=== PATIENT | female | born 1955 | race African-American/Black ===

== ENCOUNTER 2017-01-19 13:07 | Emergency (ER) | payer MEDICAID ==
[~2017-01-19] VITALS: Ht 162.6 cm; Wt 65.0 kg
[~2017-01-19 13:07] MED LIST: METHADONE PO
[2017-01-19] MEDS ORDERED: KETOROLAC 30MG/ML VIAL IM ONE (14:30)
[2017-01-19] MEDS ORDERED: ETOMIDATE 2MG/ML 10ML VIAL IV ONE (16:15)
[2017-01-19] MEDS ORDERED: MORPHINE SULFATE 4 MG/ML CPJ (NOT FOR IM USE) IV ONE (16:15)
[2017-01-19] MEDS ORDERED: ONDANSETRON HCL 4MG/2ML VIAL IV ONE (16:15)
[2017-01-19 17:30] VITALS: BP 176/83
== END 2017-01-19 19:15 | disposition home or self-care (01) ==
LOC: ER 15:02
DX: S52.531A Colles' fracture of right radius, initial encounter for closed fracture (principal); Z87.01 Personal history of pneumonia (recurrent); Y08.89XA Assault by other specified means, initial encounter; Y93.89 Activity, other specified; Y92.89 Other specified places as the place of occurrence of the external cause; Y99.8 Other external cause status
CPT/HCPCS: 25605; 73110; 96372; 96374; 96375; 99285; J1885; J2270; J2405; J3490; Z7610

== ENCOUNTER 2017-02-10 14:08 | Emergency (ER) | payer MEDICAID ==
[~2017-02-10] VITALS: Ht 149.9 cm; Wt 53.0 kg
[2017-02-10 17:57] VITALS: BP 123/70
== END 2017-02-10 18:05 | disposition home or self-care (01) ==
LOC: ER 15:09
DX: S52.531G Colles' fracture of right radius, subsequent encounter for closed fracture with delayed healing (principal); F17.200 Nicotine dependence, unspecified, uncomplicated; I10 Essential (primary) hypertension; X58.XXXD Exposure to other specified factors, subsequent encounter
CPT/HCPCS: 99283

== ENCOUNTER 2019-10-29 03:12 | Emergency (ER) | payer MEDICAID, OTHER ==
[~2019-10-29] VITALS: Ht 160 cm; Wt 73.0 kg
[2019-10-29] MEDS ORDERED: ACETAMINOPHEN 325MG TABLET PO ONE (03:45)
[2019-10-29 04:15] LABS: BASOPHILS % 0.3 % (0.0-2.0); EOSINOPHILS % 0.4 % (0.0-5.0); HEMATOCRIT. 36.8 % (36.0-48.0); HEMOGLOBIN. 12.3 g/dL (12.0-16.0); LYMPHOCYTES % 37.4 % (20.0-50.0); MEAN CORPUSCULAR HEMOGLOBIN 31.9 pg (28.0-32.0); MEAN CORPUSCULAR VOLUME 95.1 fL (81.0-99.0); MONOCYTES % 9.3 % (2.0-8.0); NEUTROPHILS % 52.6 % (40.0-76.0); PLATELET 180 x1000/uL (130-400); RED BLOOD CELL COUNT 3.87 mill/uL (4.2-5.4); RED CELL DISTRIBUTION WIDTH 12.3 % (11.6-14.6)
[2019-10-29 04:22] LABS: CHLORIDE 113 mEq/L (98-107)
[2019-10-29] MEDS ORDERED: POTASSIUM CHLORIDE 20MEQ TABLET SR PO ONE (04:45)
[2019-10-29 04:56] VITALS: BP 137/74
== END 2019-10-29 04:57 | disposition home or self-care (01) ==
LOC: ER 03:12
DX: R51 Headache (principal); R19.7 Diarrhea, unspecified; E87.6 Hypokalemia; I10 Essential (primary) hypertension
CPT/HCPCS: 36415; 80053; 85025; 99283

== ENCOUNTER 2020-08-16 22:53 | Emergency (ER) | payer MEDICAID, OTHER ==
[~2020-08-16] VITALS: Ht 160 cm; Wt 65.0 kg
[2020-08-16] MEDS ORDERED: NALO4SPR BOTHNSTRLS (23:50)
[2020-08-17 00:14] LABS: BASOPHILS % 0.6 % (0.0-2.0); HEMATOCRIT. 42.6 % (36.0-48.0); HEMOGLOBIN. 14.1 g/dL (12.0-16.0); LYMPHOCYTES % 9.8 % (20.0-50.0); MEAN CORPUSCULAR HEMOGLOBIN 31.8 pg (28.0-32.0); MEAN CORPUSCULAR VOLUME 96.1 fL (81.0-99.0); MEAN PLATELET VOLUME 9.7 fl (7.4-10.4); MONOCYTES % 11.3 % (2.0-8.0); NEUTROPHILS % 78.3 % (40.0-76.0); PLATELET 208 x1000/uL (130-400); RED BLOOD CELL COUNT 4.43 mill/uL (4.2-5.4); RED CELL DISTRIBUTION WIDTH 12.3 % (11.6-14.6)
[2020-08-17 00:17] LABS: CHLORIDE 107 mEq/L (98-107)
[2020-08-17 01:00] VITALS: BP 118/71
[2020-08-17] MEDS ORDERED: NALO4SPR BOTHNSTRLS (01:13)
== END 2020-08-17 01:28 | disposition home or self-care (01) ==
LOC: ER 22:53
DX: T40.1X1A Poisoning by heroin, accidental (unintentional), initial encounter (principal); R74.01 Elevation of levels of liver transaminase levels; I49.9 Cardiac arrhythmia, unspecified; Z98.890 Other specified postprocedural states; Y92.89 Other specified places as the place of occurrence of the external cause
CPT/HCPCS: 36415; 71045; 80053; 85025; 93005; 99285

== ENCOUNTER 2024-03-16 16:52 | Emergency (ER) | payer MEDICAID, OTHER ==
[~2024-03-16] VITALS: Ht 162.6 cm; Wt 75.0 kg
[~2024-03-16 16:52] MED LIST changes: +NALO4SPR BOTHNSTRLS
[2024-03-16 17:06] VITALS: O2SAT 98
[2024-03-16 18:10] LABS: BASOPHILS % 0.5 % (0.0-2.0); DIFFERENTIAL COMMENT 0; EOSINOPHILS % 0.9 % (0.0-5.0); HEMATOCRIT. 36.5 % (36.0-48.0); MEAN CORPUSCULAR HEMOGLOBIN 33.3 pg (28.0-32.0); MEAN CORPUSCULAR VOLUME 100.9 fL (81.0-99.0); MEAN PLATELET VOLUME 9.5 fl (7.4-10.4); MONOCYTES % 12.7 % (2.0-8.0); NEUTROPHILS % 44.9 % (40.0-76.0); PLATELET 161 x1000/uL (130-400); RED BLOOD CELL COUNT 3.62 mill/uL (4.2-5.4); RED CELL DISTRIBUTION WIDTH 12.9 % (11.6-14.6)
[2024-03-16] MEDS: KETOROLAC 30MG/ML VIAL IM STA (18:16)
[2024-03-16 18:17] LABS: CALCIUM 9.3 mg/dL (8.7-10.4); CHLORIDE 108 mEq/L (98-107); POTASSIUM 3.1 mEq/L (3.5-5.1); SODIUM 141 mEq/L (136-145)
[2024-03-16 18:18] LABS: CARBON DIOXIDE 25 mEq/L (21-32)
[2024-03-16 18:23] LABS: CREATININE 0.7 mg/dL (0.6-1.0); GLUCOSE 80 mg/dL (70-105); UREA NITROGEN BLOOD 15 mg/dL (9-23)
[2024-03-16] MEDS ORDERED: CEPH500C2 MT (19:23)
[2024-03-16 19:30] VITALS: BP 125/69; PULSE 74; RESP 16; TEMP 36.66960; O2SAT 100
== END 2024-03-16 19:32 | disposition home or self-care (01) ==
LOC: ER 16:52
DX: L03.90 Cellulitis, unspecified (principal); F11.10 Opioid abuse, uncomplicated; I10 Essential (primary) hypertension; Z98.890 Other specified postprocedural states; W18.30XA Fall on same level, unspecified, initial encounter; Y93.89 Activity, other specified; Y92.89 Other specified places as the place of occurrence of the external cause; Y99.8 Other external cause status
CPT/HCPCS: 80048; 83880; 85025; 36415; 93970; 93005; 96372; 99285; J1885; Z7610